=== PATIENT | female | born 1945 | race Caucasian/White ===

== ENCOUNTER → 2017-05-23 | Outpatient (CLI) | payer MEDICARE, OTHER ==
[~2017-05-23] MED LIST: CALC-47 PO; ESTR1PAT66 TD; GABA300C10 PO; GABAPENTIN TP; IBUP-1484 PO; LORA0.5T PO; MULT-516 PO; OXYC5CAP2 PO; SIMV20TA3 PO; TRAM50TA2 PO; VITA80004 PO; ZOLP10TA5 PO
[2017-05-23 11:57] LABS: ANION GAP 6 mmol/L (5-15); CALCIUM 8.6 mg/dL (8.5-10.1); CHLORIDE 110 mmol/L (98-107)
== END | disposition home or self-care (01) ==
LOC: STAR 10:48
PROVIDERS: ATTEND Anesthesiology
DX: Z01.818 Encounter for other preprocedural examination (principal); N20.0 Calculus of kidney; I51.7 Cardiomegaly
CPT/HCPCS: 36415; 80048; 93005

== ENCOUNTER 2017-06-01 09:59 | Day surgery (SDC) | payer MEDICARE, OTHER ==
[2017-05-23 11:12] VITALS: BP 147/85
[~2017-06-01] VITALS: Ht 165.1 cm; Wt 80.6 kg
[2017-06-01] MEDS ORDERED: LIDOCAINE-MPF 1%, 2ML INFIL ONE (10:30)
[2017-06-01 10:32] VITALS: BP 147/85
[2017-06-01] MEDS ORDERED: LACTATED RINGERS 1,000 ML IV SCH (11:00)
[2017-06-01] MEDS ORDERED: FENTANYL PF 100 MCG/2ML ONE (11:23)
[2017-06-01] MEDS ORDERED: MIDAZOLAM 1 MG/ML, 2ML ONE (11:23)
[2017-06-01] MEDS ORDERED: PROPOFOL 10 MG/ML, 20ML ONE (11:27)
[2017-06-01] MEDS ORDERED: ONDANSETRON 2MG/ML, 2ML ONE ×3 (11:30→14:46)
[2017-06-01] MEDS ORDERED: DEXAMETHASONE 4 MG/ML, 1ML ONE ×2 (11:30)
[2017-06-01] MEDS ORDERED: ROCURONIUM 10MG/ML,5ML ONE (11:30)
[2017-06-01] MEDS ORDERED: SUCCINYLCHOLINE 20 MG/ML, 10ML ONE (11:30)
[2017-06-01] MEDS ORDERED: CIPROFLOXACIN/PMX 400MG/200ML 200 ML ONE (11:45)
[2017-06-01] MEDS ORDERED: MIDAZOLAM 1 MG/ML, 2ML IV PRN (12:00)
[2017-06-01] MEDS ORDERED: LABETALOL 5MG/ML, 20ML IV PRN (12:00)
[2017-06-01] MEDS ORDERED: FENTANYL PF 100 MCG/2ML IV PRN (12:00)
[2017-06-01] MEDS ORDERED: PROMETHAZINE 12.5 MG SUPP PR PRN (12:00)
[2017-06-01] MEDS ORDERED: hydrALAzine 20 MG/ML, 1ML IV PRN (12:00)
[2017-06-01] MEDS ORDERED: OXYcodone 5 MG/5 ML ORAL.SOL UDC PO PRN (12:00)
[2017-06-01] MEDS ORDERED: ONDANSETRON 2MG/ML, 2ML IVPush PRN (12:00)
[2017-06-01] MEDS ORDERED: ALBUTEROL SULFATE 2.5 MG/3 ML NPPB PRN (12:00)
[2017-06-01] MEDS ORDERED: OXYcodone/APAP 5/325MG TABLET PO PRN (13:30)
[2017-06-01] MEDS ORDERED: MEPERIDINE/PF 25MG/0.5ML ONE ×2 (13:52→14:09)
[2017-06-01] MEDS: MEPERIDINE/PF 25MG/0.5ML IVPush PRN ×2 (13:55→14:11)
== END 2017-06-01 16:34 ==
LOC: OUT 09:59
PROVIDERS: ATTEND Urology
DX: N20.0 Calculus of kidney (principal); E78.5 Hyperlipidemia, unspecified; Z88.1 Allergy status to other antibiotic agents; Z88.8 Allergy status to other drugs, medicaments and biological substances
CPT/HCPCS: 50590; J0330; J0360; J0744; J1100; J2175; J2250; J2405; J2704; J3010; J7120